=== PATIENT | female | born 1940 | race Caucasian/White ===

== ENCOUNTER 2022-08-24 06:25 | Day surgery (SDC) | payer MEDICARE, OTHER ==
[~2022-08-24] VITALS: Ht 147.3 cm; Wt 73.2 kg
[~2022-08-24 06:25] MED LIST: ARMOUR THYROID90 MG PO; CIMZIA400 MG SUB-Q; COZAAR100 MG PO; METFORMIN HCL500 MG PO; NORVASC5 MG PO
[2022-08-24] MEDS ORDERED: HYDROCODON-ACE1 EA10 PO (08:31)
--- NOTE | 2022-08-24 08:33 | NUR ---
08/24/22 0833 Yajaira Cote 0829- PT ARRIVES TO PACU AWAKE AND TALKING. PT REPORTS NO PAIN OR NAUSEA. RESP EVEN AND UNLABORED. OXYGEN SAT HIGH 90'S ON RA. PT'S LEFT HAND ELEVATED ON A PILLOW AND ICE PACK APPLIED WITH DRESSING IN BETWEEN SKIN AND ICE PACK.
--- NOTE | 2022-08-25 08:50 | OR ---
[facility] [address], [place] [address] Signed DATE OF OPERATION: 08/24/2022 SURGEON: Ruth Linder MD PREOPERATIVE DIAGNOSIS: Ring trigger finger, left. POSTOPERATIVE DIAGNOSIS: Ring trigger finger, left. PROCEDURE PERFORMED: Left trigger finger release, left ring. DRINK MIXER: None. ANESTHESIA: Blanquita block. TOURNIQUET TIME: 14 minutes. BRIEF HISTORY: Kristal is an 82-year-old female with locking of the ring finger. Risks and benefits of operative treatment were discussed with her and she elected to proceed. PROCEDURE IN DETAIL: Once consent was obtained she was taken to the operating room after adequate anesthesia. She was left on the operating room [place]. The hand table was brought in. Her arm was prepped and draped in a standard sterile fashion. A 1.5 cm incision was made in the distal palmar crease, carried through the skin and subcutaneous tissue directly down on the A1 ligament. This was dissected free of overlying soft tissue and under direct loupe magnification was transected. The patient was asked to move her finger. She was able to fully flex and fully extend her finger with no locking or triggering. The wound was copiously irrigated with antibiotic solution closed with 3-0 nylon, injected with 5 mL 0.25% plain Marcaine. Wound was dressed with bacitracin, Adaptic, 4 x 8s, and gauze. She tolerated the procedure well. All sponge, needle, and instrument counts were correct. Electronically Signed By: RUTH LINDER MD 08/25/22 0850 PATIENT NAME: KRISTAL LAMBERT OPERATIVE REPORT DATE OF : 44 REPORT #: [id number] PHYSICIAN: RUTH LINDER MD PCP: SPIKE ATKINS MD REPORT IS CONFIDENTIAL AND NOT TO BE RELEASED WITHOUT AUTHORIZATION [address] [address] Signed Ruth Linder MD [facility] /[id number] Copies: ~ Electronically Signed By: RUTH LINDER MD 08/25/22 0850 PATIENT NAME: KRISTAL LAMBERT OPERATIVE REPORT DATE OF : 44 REPORT #: [id number] PHYSICIAN: RUTH LINDER MD PCP: SPIKE ATKINS MD REPORT IS CONFIDENTIAL AND NOT TO BE RELEASED WITHOUT AUTHORIZATION
== END 2022-08-24 09:15 | disposition home or self-care (01) ==
LOC: DS 06:25
PROVIDERS: ATTEND Specialist
PROC: 0LN80ZZ Release Left Hand Tendon, Open Approach (ICD-10-PCS; principal; 2022-08-24 08:00)
DX: M65.342 Trigger finger, left ring finger (principal); E03.9 Hypothyroidism, unspecified; E11.9 Type 2 diabetes mellitus without complications; Z79.84 Long term (current) use of oral hypoglycemic drugs; Z87.891 Personal history of nicotine dependence
CPT/HCPCS: J0690; J2704; J7121